=== PATIENT | male | born 1955 | race Caucasian/White ===

== ENCOUNTER 2024-02-13 06:18 | Day surgery (SDC) | payer MEDICARE, SELFPAY ==
[2024-01-30 08:03] VITALS: BMI 25.4
[2024-02-13] VITALS (8 sets, daily range): BP systolic 104–140; BP diastolic 62–79; BMI 23.8; BMI 25.4
[2024-02-13] MEDS: FLOMAX 0.400000000000000022 MG PO (09:07)
== END 2024-02-13 09:58 | disposition home or self-care (01) ==
LOC: SDS 06:18
PROVIDERS: ATTENDING PHYSICIAN Specialist
DX: N40.0 Benign prostatic hyperplasia without lower urinary tract symptoms (principal); N41.9 Inflammatory disease of prostate, unspecified; R97.20 Elevated prostate specific antigen [PSA]
CPT/HCPCS: 55700; 76998; 88305; 88341; 88344; J1580

== ENCOUNTER 2024-04-30 17:05 | Emergency (ER) | payer MEDICARE, SELFPAY ==
[2024-04-30 17:08] VITALS: BP 145/97
[2024-04-30 17:32] VITALS: BMI 25.1
--- NOTE | 2024-04-30 18:06 | ED.MUSCINJ ---
HPI-Injury
General
Chief Complaint: Fall
Source: patient
Exam Limitations: none
Time Seen by Provider: 04/30/24 17:19
Nursing documentation reviewed up to this point in time: agreed with
History of Present Illness-Injury
Initial Injury comments:
69-year-old male with no significant past medical history states he was at home 3-1/2 hours ago, slid down 6 wooden steps first impacting the left forearm on the step and then his right mid to lower back on the steps. He took Tylenol 1000 mg. And
apply cool compresses to the areas. He has been up and ambulating well. He denies hitting his head.
Past History
Past History
ED Past Medical History: None
ED Past Surgical History: Tonsilectomy
Social History
Tobacco: Non-smoker
Alcohol: Occasional
Personal:
Living: with family
Review of Systems
Review of Systems
Allergies reviewed?: Yes
All Other Systems: ROS reviewed and negative except as documented in HPI and ROS
Respiratory: Denies trouble breathing
Cardiac: Denies chest pain
ABD/GI: Denies abdominal pain or nausea
: Denies difficulty voiding, bleeding or dark urine
Musculoskeletal: Reports back pain (Right lower back)
Skin: Reports other (Tiny abrasion mid left forearm)
Neurological: Reports no symptoms
Phy Exam
Physical Exam
Physical Exam:
GENERAL: No acute distress. A&Ox3.
CONSTITUTIONAL: Afebrile.
EYES: Clear, conjunctivae normal
Neck: Supple
ENMT: moist mucus membranes, Pharynx nl
RESPIRATORY: Regular respirations, nonlabored, lungs clear.
CARDIOVASCULAR: Regular rate and rhythm, no murmurs, no rubs.
GI: Soft, nontender, normal BS
MUSCULOSKELETAL: No spinal bony tenderness. Mild tenderness over right flank, full range of motion to rotation and forward flexion of torso. Moves with ease. Well perfused. Mild tenderness at site of a small abrasion mid left forearm. Distal
neurovascular intact.
SKIN: Warm, dry, pink
PSYCH: Normal mood and affect. Well kept, interactive and appropriate
NEUROLOGIC: Awake, alert and oriented. No focal neurological deficits
Injury Course
Orders/Labs/Results
Orders:
Orders
04/30/24 17:45
CR Forearm - Left 2 View Urgent
Comment:
Reason For Exam: direct impact mid forearm in fall
MDM/Problems Addressed
Differential Diagnosis Includes:
Contusion versus fracture left forearm
Back strain
MDM/Problems Addressed:
69-year-old male with no significant past medical history states he was at home 3-1/2 hours ago, slid down 6 wooden steps first impacting the left forearm on the step and then his right mid to lower back on the steps. He took Tylenol 1000 mg. And
apply cool compresses to the areas. He has been up and ambulating well. He denies hitting his head.
X-ray of the forearm initially read by this examiner, reveals no fracture.
There is no spinal bony tenderness, patient has full range of motion of spine comfortably, ambulating well, no indication for further imaging. Patient agrees
*Critical Care Note
Total Time (30-74mins, 75-104mins- exclusive of procedures): Not Applicable
ED Attending Note
-
Portions of this chart may have been created with voice recognition software.� Occasional wrong word or��sound alike� substitutions may have occurred due to the inherent limitations of voice recognition software.
Discharge Plan
Departure
Patient Disposition: Home (Routine Discharge)
Date of Disposition: 04/30/24
Time of Disposition: 18:04
Patient with high blood pressure during this ER visit?: No
Condition: Good
Discharge Problem:
Fall down stairs, Contusion of left forearm, Contusion of right side of back
Instructions: Contusion (DC)
Prescriptions:
No Action
multivitamin Tablet
1 tab PO DAILY
valacyclovir 1 gram Tablet
1,000 mg PO PRN PRN (Reason: COLD SORES)
terbinafine HCl 250 mg Tablet
250 mg PO DAILY PRN (Reason: TOE NAILS)
apple cider vinegar 600 mg Capsule
1,200 mg PO BID
triamcinolone acetonide [Nasacort] 55 mcg Aerosol,[place]
1 spray INTRANASAL DAILY
Fleet Enema 19-7 gram/118 mL Enema
118 ml IA PRE OP
azelastine [Astepro] 137 mcg (0.1 %) Aerosol,[place]
1 spray INTRANASAL DAILY
loratadine 10 mg Tablet
10 mg PO DAILY
olopatadine 0.2 % Drops
1 drp OPHTHALMIC (EYE) DAILY
turmeric root extract 500 mg Capsule
1,000 mg PO BID
Glucosamine Msm 1,500 MG/1,500 MG
1 tab PO BID
Ocuvite With Vitamin D
1 tab PO BID
Probiotic
1 tab PO DAILY
Vitamin B3 500 MG
500 mg PO DAILY
Vitamin D3
1 tab PO DAILY
Activity Restrictions/Additional Instructions:
As we discussed, the x-ray of your arm is negative.
You may feel more stiff and sore over the next day or 2 as this is not unusual after a fall.
Interventions
Interventions:
*Risk Screen - Suicide Last Done: 04/30/24 17:08
*General Assessment Last Done: 04/30/24 17:08
*Neglect/Abuse Screening Last Done: 04/30/24 17:08
ED- Fall Risk Assessment Last Done: 04/30/24 17:32
*Nursing Disposition Last Done: 04/30/24 18:23
ED-Musculoskeletal Assessment Last Done: 04/30/24 17:32
ED- Neurological Assessment Last Done: 04/30/24 17:32
ED-Skin Assessment Last Done: 04/30/24 17:32
Discharge Date and Time
Discharge Date/Time: 04/30/24 18:24
Print Language: GREEK
--- NOTE | 2024-04-30 18:22 | EDRN ---
Reviewed discharge instructions with patient. Verbalized understanding. Ambulated with steady gait to the lobby.
[2024-04-30 18:23] VITALS: BP 127/88
== END 2024-04-30 18:24 | disposition home or self-care (01) ==
LOC: EMR 17:05
PROVIDERS: EMERGENCY PHYSICIAN Emergency Medicine; FAMILY PHYSICIAN Family Medicine
DX: S50.12XA Contusion of left forearm, initial encounter (principal); S20.221A Contusion of right back wall of thorax, initial encounter; W10.9XXA Fall (on) (from) unspecified stairs and steps, initial encounter
CPT/HCPCS: 99283; 73090

== ENCOUNTER → 2024-06-17 10:10 | Outpatient (REF) | payer MEDICARE, SELFPAY | LOC: RAD 10:10 | PROVIDERS: ATTENDING PHYSICIAN Student in an Organized Health Care Education/Training Program | DX: Z00.00 Encounter for general adult medical examination without abnormal findings (principal); N40.0 Benign prostatic hyperplasia without lower urinary tract symptoms; Z82.49 Family history of ischemic heart disease and other diseases of the circulatory system | CPT/HCPCS: 75571 ==

== ENCOUNTER 2024-06-24 13:29 | Emergency (ER) | payer MEDICARE, SELFPAY ==
[2024-06-24 13:35] VITALS: BP 147/92
[2024-06-24 13:51] LABS: % Basophils 0.3 % (0-2); % Eosinophils 2.9 % (0-6); % Immature Granulocytes 0.2 % (0-0.5); % Lymphocytes 26.4 % (20.5-51.1); % Monocytes 6.7 % (1.7-9.3); % Neutrophils 63.5 % (42.2-75.2); Absolute Eosinophils 0.2 10^3/uL (0-0.7); Absolute Lymphocytes 1.7 10^3/uL (1.2-3.4); Absolute Monocytes 0.4 10^3/uL (0.1-0.6); Hematocrit 40.8 % (39.0-52.0); Hemoglobin 14.2 g/dL (13.0-18.0); Mean Corp Hgb Conc. 34.8 g/dL (33.0-37.0); Mean Corpuscular Hgb 30.6 pg (27.0-31.0); Mean Corpuscular Volume 87.9 fL (80.0-94.0); Mean Platelet Volume 8.8 fL (7.4-10.4); Nucleated Red Blood Cells % 0 % (-); Platelet Count 254 10^3/uL (130-400); Red Blood Cell Count 4.64 10^6/uL (4.70-6.10); Red Cell Dist. Width 13.4 % (11.5-14.5); White Blood Cell Count 6.3 10^3/uL (4.8-10.8)
[2024-06-24 14:20] LABS: Troponin I < 0.012 ng/ml
[2024-06-24 14:21] LABS: ALT (SGPT) 23 U/L (0-50); AST (SGOT) 34 U/L (17-59); Albumin 4.5 g/dl (3.5-5.0); Alkaline Phosphatase 60 U/L (38-126); Blood Urea Nitrogen 19 mg/dl (9-20); Calcium 9.9 mg/dl (8.4-10.2); Carbon Dioxide 26 mmol/L (22-30); Chloride 103 mmol/L (98-107); Glucose 99 mg/dl (70-99); Potassium 4.2 mmol/L (3.5-5.1); Sodium 141 mmol/L (135-145); Total Bilirubin 0.6 mg/dl (0.2-1.3); Total Protein 6.9 g/dl (6.3-8.2); eGFR > 60.00
[2024-06-24 14:36] VITALS: BP 128/81
[2024-06-24 16:30] LABS: Troponin I < 0.012 ng/ml
--- NOTE | 2024-06-24 16:41 | ED.GENMED ---
History of Present Illness
General
Chief Complaint: Back Pain
Source: patient
Exam Limitations: none
Time Seen by Provider: 06/24/24 14:18
Nursing documentation reviewed up to this point in time: agreed with
History of Present Illness
History of Present Illness:
69-year-old male presenting to the emergency department today with concerns of mid back pain while playing golf earlier today. Ongoing discomfort intermittently here seems to be worse with movement denies any associated chest pain shortness of
breath nausea vomiting diaphoresis. Denies any smoking drinking or drug use. Denies any known heart disease no history of blood clots
Past History
Past History
ED Past Medical History: None
ED Past Surgical History: Tonsilectomy
Social History
Tobacco: Non-smoker
Alcohol: Occasional
Personal:
Living: with family
Review of Systems
Review of Systems
Allergies reviewed?: Yes
All Other Systems: ROS reviewed and negative except as documented in HPI and ROS
Phy Exam
Physical Exam
Physical Exam:
GENERAL: Alert , in no apparent distress
EYE: pupils equal and reactive
NECK: Supple, no significant adenopathy.
ENT: o/p clr, mmm.
CARDIAC: Regular rate and rhythm .
LUNGS: Clear breath sounds bilaterally, no acute respiratory distress, no wheezes/rales/rhonchi
ABDOMEN: Soft, without focal tenderness, no r/g, no cvat
NEUROLOGICAL: Alert and oriented, no focal neuro deficits
SKIN: Warm and dry, skin intact.
MUSCULOSKELETAL: No edema, well perfused.
PSYCH: Normal and appropriate interaction.
Course
Orders/Labs/Results
Orders:
Orders
06/24/24 13:30
Electrocardiogram (*1) Urgent
Reason for Study: Other
Other Reason for Exam: back pain
EKG- Treatment ONCE
06/24/24 13:43
Complete Blood Count/With Diff Urgent
Comprehensive Metabolic Panel Urgent
Troponin I Urgent
06/24/24 14:51
Chest [CR Chest - 2 Views ] Urgent
Comment:
Reason For Exam: upper back pain
06/24/24 15:54
EKG [Electrocardiogram (*1)] Urgent
Reason for Study: Chest Pain
EKG- Treatment ONCE
06/24/24 15:55
Troponin I Urgent
Abnormal Lab Results
06/24/24
13:43
RBC 4.64 L 10^6/uL
(4.70-6.10)
06/24/24 13:43
06/24/24 13:43
Vital Signs
Initial and Last Documented VS:
Initial Vital Signs
Temp Pulse Resp BP Pulse Ox
98.8 F 80 16 147/92 96
06/24/24 13:35 06/24/24 13:35 06/24/24 13:35 06/24/24 13:35 06/24/24 13:35
Last Documented Vital Signs
Temp Pulse Resp BP Pulse Ox
98.8 F 72 16 128/81 98
06/24/24 13:35 06/24/24 15:12 06/24/24 15:12 06/24/24 14:36 06/24/24 15:12
MDM/Problems Addressed
MDM/Problems Addressed:
61-year-old male presenting to the emergency department today with concerns of upper back discomfort. No associated symptoms. Seem to be worse with movements while playing golf. Vital signs normal upon arrival patient in no distress normal heart
and lung examination. Back pain is not perfectly reproducible considering this EKG labs performed. EKG labs troponin and chest x-ray without acute abnormalities. Second troponin level also negative and EKG unchanged for multiple hours in the ER.
Emergent pathology very unlikely. Patient with likely mechanical back pain plan for outpatient follow-up. Return precautions given.
*Critical Care Note
Total Time (30-74mins, 75-104mins- exclusive of procedures): Not Applicable
ED Attending Note
-
Portions of this chart may have been created with voice recognition software.� Occasional wrong word or��sound alike� substitutions may have occurred due to the inherent limitations of voice recognition software.
Discharge Plan
Departure
Patient Disposition: Home (Routine Discharge)
Date of Disposition: 06/24/24
Time of Disposition: 16:51
Patient with high blood pressure during this ER visit?: No
Condition: Good
Covid-19: Not Applicable
Discharge Problem:
Upper back pain
Instructions: Upper Back Pain (DC)
Prescriptions:
No Action
multivitamin Tablet
1 tab PO DAILY
valacyclovir 1 gram Tablet
1,000 mg PO PRN PRN (Reason: COLD SORES)
terbinafine HCl 250 mg Tablet
250 mg PO DAILY PRN (Reason: TOE NAILS)
apple cider vinegar 600 mg Capsule
1,200 mg PO BID
triamcinolone acetonide [Nasacort] 55 mcg Aerosol,[place]
1 spray INTRANASAL DAILY
Fleet Enema 19-7 gram/118 mL Enema
118 ml [place] PRE OP
azelastine [Astepro] 137 mcg (0.1 %) Aerosol,[place]
1 spray INTRANASAL DAILY
loratadine 10 mg Tablet
10 mg PO DAILY
olopatadine 0.2 % Drops
1 drp OPHTHALMIC (EYE) DAILY
turmeric root extract 500 mg Capsule
1,000 mg PO BID
Glucosamine Msm 1,500 MG/1,500 MG
1 tab PO BID
Ocuvite With Vitamin D
1 tab PO BID
Probiotic
1 tab PO DAILY
Vitamin B3 500 MG
500 mg PO DAILY
Vitamin D3
1 tab PO DAILY
Referrals:
Felipe Shelton DO [Family Provider] -
Activity Restrictions/Additional Instructions:
You came to the emergency department today with concerns of upper back pain. Here had a reassuring assessment. Please follow closely with a primary care doctor. Return to the emergency department any worsening, new or concerning symptom
Interventions
Interventions:
*Risk Screen - Suicide Last Done: 06/24/24 13:35
*General Assessment Last Done: 06/24/24 13:35
*Neglect/Abuse Screening Last Done: 06/24/24 13:35
ED-Musculoskeletal Assessment Last Done: 06/24/24 14:08
Discharge Date and Time
Print Language: SWEDISH
[2024-06-24 17:19] VITALS: BP 128/84
== END 2024-06-24 17:21 | disposition home or self-care (01) ==
LOC: EMR 13:29
PROVIDERS: Physician Assistant; Student in an Organized Health Care Education/Training Program; EMERGENCY PHYSICIAN Emergency Medicine; FAMILY PHYSICIAN Student in an Organized Health Care Education/Training Program
DX: M54.6 Pain in thoracic spine (principal)
CPT/HCPCS: 99285; 71046; 80053; 84484; 85025; 93005

== ENCOUNTER → 2025-01-26 11:26 | Outpatient (REF) | payer MEDICARE, SELFPAY | LOC: HWRAD 11:26 | PROVIDERS: ATTENDING PHYSICIAN Student in an Organized Health Care Education/Training Program | DX: R07.81 Pleurodynia (principal) | CPT/HCPCS: 71046 ==

== ENCOUNTER → 2025-03-03 09:43 | Outpatient (REF) | payer MEDICARE, SELFPAY ==
[2025-03-03 11:15] LABS: PSA, Total - Diagnostic 4.25 ng/ml (0.0-4.0)
== END ==
LOC: REG 09:43
PROVIDERS: ATTENDING PHYSICIAN Specialist; FAMILY PHYSICIAN Student in an Organized Health Care Education/Training Program
DX: R97.20 Elevated prostate specific antigen [PSA] (principal)
CPT/HCPCS: 36415; 84153

== ENCOUNTER → 2025-05-18 14:11 | Outpatient (REF) | payer MEDICARE, SELFPAY | LOC: MRI 3T 14:11 | PROVIDERS: ATTENDING PHYSICIAN Specialist; FAMILY PHYSICIAN Student in an Organized Health Care Education/Training Program | DX: M25.511 Pain in right shoulder (principal) | CPT/HCPCS: 73221 ==

== ENCOUNTER → 2025-06-06 11:26 | Outpatient (REF) | payer MEDICARE, SELFPAY | LOC: HWRAD 11:26 | PROVIDERS: ATTENDING PHYSICIAN Specialist; FAMILY PHYSICIAN Student in an Organized Health Care Education/Training Program | DX: M19.011 Primary osteoarthritis, right shoulder (principal) | CPT/HCPCS: 73200 ==